=== PATIENT | male | born 1950 | race Caucasian/White ===

== ENCOUNTER 2021-02-11 14:01 | Emergency (ER) | payer MEDICARE ==
[~2021-02-11] VITALS: Ht 182.9 cm; Wt 100.0 kg
[~2021-02-11 14:01] MED LIST: ALLOPURINOL100 MG PO; AMLODIPINE5 MG PO; ASPIRIN EC81 MG PO; C 250 PO; CELECOXIB100 M1 PO; CENTRUM PO; CLONIDINE0.1 MG PO; CLOPIDOGREL75 MG PO; COLCHICINE0.6 M2 PO; DOXAZOSIN4 MG PO; FISH OIL1000 MG PO; FUROSEMIDE20 MG PO; GABAPENTIN300 MG PO; INDOMETHACIN50 MG OR; METFORMIN850 MG PO; METOPROLOL TAR100 MG PO; OMEPRAZOLE20 MG PO; SIMVASTATIN20 MG PO; VALSARTAN320 MG PO; ZESTRIL40 MG OR
[2021-02-11 14:55] LABS: HEMATOCRIT 21.5 % (39.0-50.0); HEMOGLOBIN 7.1 g/dl (14.0-18.0); IMMATURE GRANULOCYTES 2.1 % (0.0-5.0); MEAN CELL VOLUME 90.7 fL CALC (80.0-100.0); NEUT# 14.52 thou/uL (1.82-7.42); RED BLOOD COUNT 2.37 mill/uL (4.70-6.10); RED CELL DISTRI WIDTH 17.8 % (11.5-15.5)
[2021-02-11 15:05] LABS: ALKALINE PHOSPHATASE 58 u/l (38-126); ANION GAP 5 (6-22 (CALC)); BILIRUBIN, TOTAL 0.7 mg/dL (0.0-1.4); BUN 26 mg/dL (8-23); BUN/CREATININE RATIO 28 (12-20 (CALC)); CARBON DIOXIDE 29 mmol/l (22-30); CHLORIDE 101 mmol/l (95-108); CREATININE 0.9 mg/dL (0.7-1.3); GFR > 60 ML/MIN (>=60 (CALC)); GFR FOR AFR.AMER. > 60 ML/MIN (>=60 (CALC)); LIPASE 13 u/l (23-300); SGOT/AST 20 u/l (19-48); SODIUM 132 mmol/l (137-146)
[2021-02-11 15:13] LABS: AMYLASE < 30 u/l (30-110)
[2021-02-11] MEDS ORDERED: MAG-200200 MG PO (17:16)
[2021-02-11 18:24] VITALS: BP 143/63
== END 2021-02-11 18:26 | disposition left against medical advice (07) ==
LOC: ED 14:01
DX: J90 Pleural effusion, not elsewhere classified (principal); I31.3 Pericardial effusion (noninflammatory); E83.42 Hypomagnesemia; E87.6 Hypokalemia; Z91.19 Patient's noncompliance with other medical treatment and regimen; C85.90 Non-Hodgkin lymphoma, unspecified, unspecified site; E11.9 Type 2 diabetes mellitus without complications; Z79.899 Other long term (current) drug therapy; Z79.84 Long term (current) use of oral hypoglycemic drugs
CPT/HCPCS: Q9967

== ENCOUNTER 2021-03-23 13:22 | Inpatient (IN) | payer MEDICARE ==
[2021-03-23] VITALS (12 sets, daily range): BP systolic 90–121; BP diastolic 54–71
[~2021-03-23] VITALS: Ht 182.9 cm; Wt 94.0 kg
[~2021-03-23 13:22] MED LIST changes: -GABAPENTIN300 MG PO; +MAG-200200 MG PO; +NEURONTIN300 MG PO
--- NOTE | 2021-03-23 13:22 | NUR ---
PT TO ROOM VIA EMS ON BIPAP
[2021-03-23 13:50] LABS: GFR > 60 ML/MIN (>=60 (CALC)); GFR FOR AFR.AMER. > 60 ML/MIN (>=60 (CALC))
[2021-03-23 13:54] LABS: HEMATOCRIT 20.4 % (39.0-50.0); IMMATURE GRANULOCYTES 0.7 % (0.0-5.0); MEAN CELL VOLUME 94.4 fL CALC (80.0-100.0); MEAN CORPUSCULAR HGB 30.1 pG CALC (26.0-32.0); MEAN CORPUSCULAR HGB CONC 31.9 g/dL CAL (32.0-36.0); NEUT# 26.06 thou/uL (1.82-7.42); RED BLOOD COUNT 2.16 mill/uL (4.70-6.10); RED CELL DISTRI WIDTH 15.3 % (11.5-15.5)
[2021-03-23 14:02] LABS: HEMOGLOBIN 6.5 g/dl (14.0-18.0)
[2021-03-23 14:10] LABS: INTERNATIONAL NORMALIZED RATIO 1.3 RATIO (0.7-1.3); PROTHROMBIN TIME 13.3 SECONDS (9.0-12.5)
[2021-03-23 14:13] LABS: ALBUMIN 1.8 g/dL (3.2-5.0); ALKALINE PHOSPHATASE 56 u/l (38-126); ANION GAP 8 (6-22 (CALC)); BILIRUBIN, TOTAL 0.6 mg/dL (0.0-1.4); BUN 19 mg/dL (8-23); BUN/CREATININE RATIO 22 (12-20 (CALC)); CARBON DIOXIDE 27 mmol/l (22-30); CHLORIDE 103 mmol/l (95-108); CREATININE 0.9 mg/dL (0.7-1.3); GFR > 60 ML/MIN (>=60 (CALC)); GFR FOR AFR.AMER. > 60 ML/MIN (>=60 (CALC)); POTASSIUM 3.5 mmol/l (3.5-5.1); SGOT/AST 19 u/l (19-48); SODIUM 135 mmol/l (137-146); TOTAL PROTEIN 3.5 g/dL (6.3-8.2)
[2021-03-23 14:29] LABS: URINE BILIRUBIN - DIPSTICK NEGATIVE (NEGATIVE); URINE BLOOD DIPSTICK TRACE-INTACT (NEGATIVE); URINE COLOR YELLOW; URINE GLUCOSE - DIPSTICK NEGATIVE (NEGATIVE); URINE KETONE NEGATIVE (NEGATIVE); URINE LEUK ESTERASE NEGATIVE (NEGATIVE); URINE NITRITE - DIPSTICK NEGATIVE (Negative); URINE PROTEIN - DIPSTICK NEGATIVE (NEG-TRACE); URINE SPECIFIC GRAVITY >=1.030; URINE UROBILINOGEN - DIPSTICK 0.2 E.U./dL (0.2)
--- NOTE | 2021-03-23 14:38 | NUR ---
PT TO RADIOLOGY VIA STRETCHER ON BIPAP. LEVOPHED DRIP, IV ABT, FLUIDS INFUSING. VSS 112/79 74 100% BIPAP. PABON PATENT TO BSDB. L/RAC, PORT IV SITES HEALTHY.
[2021-03-23] MEDS ORDERED: LOSARTAN POTASS50 MG PO (14:40)
[2021-03-23] MEDS ORDERED: CLOPIDOGREL75 MG PO (14:41)
[2021-03-23] MEDS ORDERED: ASPIRIN81 MG PO (14:42)
[2021-03-23] MEDS ORDERED: BUMETANIDE1 MG PO (14:45)
[2021-03-23] MEDS ORDERED: K-TAB20 MEQ PO (14:46)
[2021-03-23] MEDS ORDERED: PROTONIX20 M1 PO (14:47)
[2021-03-23] MEDS ORDERED: TRAMADOL HCL50 MG PO (14:47)
[2021-03-23] MEDS ORDERED: [UNRECOGNIZED DRUG - OTHER] PO (14:48)
--- NOTE | 2021-03-23 15:30 | NUR ---
PATIENT LYING IN BED WITH AT BEDSIDE. ALERT AND ORIENTED.
--- NOTE | 2021-03-23 16:16 | NUR ---
PATIENT LYING IN BED WITH AT BEDSIDE. DENIES NEEDS AT THIS TIME.
--- NOTE | 2021-03-23 17:10 | NUR ---
PATIENT LYING IN BED WITH AT BEDSIDE. LEVOPHED TITRATED BACK FROM 8 TO 10 MCG DUE TO DECREASE IN BLOOD PRESSURE. REASSESSMENT AT THIS TIME SHOWS BP OF 123/66. PATIENT IN NO ACUTE DISTRESS.
--- NOTE | 2021-03-23 17:58 | NUR ---
RECIEVED FROM ER VIA STRETCHER TO ICU 2. AT BEDSIDE. NO C/O PAIN VOICED. ON BIPAP 50%. WOUNDS NOTED TO COCCYX AND MID BACK ALONG VERTABRAL SPINE. GENERALIZED WEAKNESS NOTED. PABON CATH WITH STRAW COLORED FLUID. DRESSING NOTED TO BILAT LOWER EXTRIMITY.
--- NOTE | 2021-03-23 18:00 | NUR ---
TRANSPORTED PATIENT TO ICU WITH RESPIRATORY AND AT BEDSIDE. PATIENT IN NO ACUTE DISTRESS. TO KEEP BELONGINGS. REPORT CALLED TO ICU PRIOR TO TRANSPORT. HAND OFF COMPLETED.
--- NOTE | 2021-03-23 19:00 | NUR ---
REPORT RECEIVED FROM Jay BAY RN, CARE OF PT ASSUMED AT THIS TIME.
--- NOTE | 2021-03-23 20:15 | NUR ---
PT INCONTINENT OF LARGE DARK BROWN LIQUID STOOL. INCONTINCE CARE PROVIDED. WOUNDS TO PERINEUM, STG 3 W/ SLOUGH. WOUND TO CENTER MID BACK CIRCULAR STG 2 X2. LEFT SIDE ABD FOLD ABRASION. B/L GROIN FUNGAL REDNESS/IRRITATION WITH REDNESS AND EDEMA TO PENIS AND SCROTUM. B/L TIRADO ULCERATION. WOUNDS CLEANSED THOROUGHLY AND GENTLY PATTED DRY. PHOTO DOCUMENTATION OBTAINED. SEE CHART.
--- NOTE | 2021-03-23 21:40 | NUR ---
TRANSFUSION OF PRBC INITIATED.
--- NOTE | 2021-03-23 21:55 | NUR ---
15 MINUTES OF BEDSIDE 1:1 MONITORING COMPLETED. PT SHOWS NO DISTRESS OR S/S OF TRANSFUSION REACTION. WILL CON'T TO MONITOR CLOSELY.
--- NOTE | 2021-03-23 23:15 | NUR ---
ORDERS FOR WOUND CARE CONSULT, CASE MANAGMENT CONSULT, NUTRITIONAL CONSULT, AND AIR MATTRESS OBTAINED DUE TO WOUNDS AND TO EVAL ABILITY TO RECEIVE CARE IN CURRENT LIVING SITUATION.
--- NOTE | 2021-03-23 23:27 | NUR ---
TRANSFUSION PRBC COMPLETE WITHOUT COMPLICATION. PT TOLERATED WELL. VSS. POST TRASFUSION IV LASIX ADMINISTERED, SEE E-MAR.
[2021-03-24] VITALS (28 sets, daily range): BP systolic 108–148; BP diastolic 55–84
--- NOTE | 2021-03-24 04:10 | NUR ---
AM LABS COLLECTED VIA IMPLANTED PORT PER [facility] POLICY AND PROCEDURE.
[2021-03-24 06:02] LABS: MEAN CORPUSCULAR HGB 29.2 pG CALC (26.0-32.0); MEAN CORPUSCULAR HGB CONC 33.1 g/dL CAL (32.0-36.0); RED BLOOD COUNT 2.95 mill/uL (4.70-6.10); RED CELL DISTRI WIDTH 17.6 % (11.5-15.5)
[2021-03-24 06:09] LABS: HEMOGLOBIN 8.6 g/dl (14.0-18.0); MEAN CELL VOLUME 88.1 fL CALC (80.0-100.0)
[2021-03-24 06:18] LABS: ALBUMIN 1.6 g/dL (3.2-5.0); ALKALINE PHOSPHATASE 55 u/l (38-126); ANION GAP 10 (6-22 (CALC)); BUN 19 mg/dL (8-23); BUN/CREATININE RATIO 22 (12-20 (CALC)); CARBON DIOXIDE 26 mmol/l (22-30); CHLORIDE 105 mmol/l (95-108); CREATININE 0.8 mg/dL (0.7-1.3); GFR > 60 ML/MIN (>=60 (CALC)); GFR FOR AFR.AMER. > 60 ML/MIN (>=60 (CALC)); POTASSIUM 2.9 mmol/l (3.5-5.1); SGOT/AST 16 u/l (19-48); SODIUM 138 mmol/l (137-146); TOTAL PROTEIN 3.4 g/dL (6.3-8.2)
--- NOTE | 2021-03-24 07:07 | NUR ---
TAKEN OFF BIPAP AND PLACED ON 3l NC. SAT 100%
--- NOTE | 2021-03-24 08:13 | NUR ---
BM X1 LOOSE AND BROWN. BED BATH GIVEN LINENS CHANGED.
--- NOTE | 2021-03-24 08:56 | NUR ---
DR WYATT IN TO SEE PT. MAG RIDER INFUSING AT THIS TIME.
--- NOTE | 2021-03-24 09:02 | NUR ---
LEVOPHED GTT TITRATED TO 8MCG/MIN.
--- NOTE | 2021-03-24 09:56 | NUR ---
CALLED [phone] GIVEN UPDATE ON PT. DR WYATT SPEAKING WITH AT THIS TIME.
--- NOTE | 2021-03-24 10:33 | NUR ---
PT IS RA 95% RESTING IN BED
--- NOTE | 2021-03-24 11:52 | NUR ---
PLACED ON AIR MATTRESS.
--- NOTE | 2021-03-24 12:00 | NUR ---
TITRATED OFF OF LEVOPHED.
[2021-03-24] MEDS ORDERED: CELECOXIB100 M1 PO (12:01)
--- NOTE | 2021-03-24 13:41 | NUR ---
IN TO VISIT.
--- NOTE | 2021-03-24 13:42 | NUR ---
SON IN TO VISIT.
--- NOTE | 2021-03-24 15:37 | NUR ---
BROWN LOOSE BM. KAMLESH CARE DONE. INCREASED SWELLING NOTED TO RT FLANK, LT ARM, PENIS, AND SCROTUM. DR WYATT MADE AWARE.
--- NOTE | 2021-03-24 18:20 | NUR ---
LOOSE BROWN BM. POOR APPEITITE NOTED WITH DINNER.
--- NOTE | 2021-03-24 19:00 | NUR ---
REPORT RECEIVED FROM Jay BAY RN, CARE OF PT ASSUMED AT THIS TIME.
[2021-03-25] VITALS (19 sets, daily range): BP systolic 117–166; BP diastolic 61–71
--- NOTE | 2021-03-25 00:19 | NUR ---
SMALL LIQUID BM, INCONTINENCE CARE PROVIDED. WOUND HONEY TO WOUNDS. BARRIER CREAM TO SURRONDING SKIN.
--- NOTE | 2021-03-25 00:45 | NUR ---
LARGE LIQUID BM, INCONTINENCE CARE PROVIDED. WOUND HONEY TO WOUNDS. BARRIER CREAM TO SURRONDING SKIN.
--- NOTE | 2021-03-25 02:30 | NUR ---
PT INCONTINENT OF LIQUID STOOL. ORDER FOR FMS OBTAINED. STOOL CX AND C-DIFF OBTAINED. PT AGREES TO FMS. INCONTINENCE CARE PROVIDED. FLEXISEAL FMS PLACED. PT TOLERATED PROCEDURE. BARRIER CREAM AND MEDICAL HONEY PLACED OVER WOUNDS.
--- NOTE | 2021-03-25 04:15 | NUR ---
AM LABS COLLECTED VIA IMPLANTED PORT PER [facility] POLICY AND PROCEDURE. AM BED WEIGHT 93.6 KG, SUSPECT BED SCALE WAS NOT ZEROED WHEN PT WAS CHANGED OVER TO AI MATTRESS. WILL ENDORSE TO ONCOMING SHIFT TO ZERO BED SCALE IF PT'S COMES OFF OF BED AT ANY TIME.
[2021-03-25 04:45] LABS: C. DIFFICILE TOXIN A&B NEGATIVE (NEGATIVE)
[2021-03-25 06:09] LABS: HEMATOCRIT 23.9 % (39.0-50.0); HEMOGLOBIN 7.8 g/dl (14.0-18.0); MEAN CELL VOLUME 89.5 fL CALC (80.0-100.0); MEAN CORPUSCULAR HGB 29.2 pG CALC (26.0-32.0); MEAN CORPUSCULAR HGB CONC 32.6 g/dL CAL (32.0-36.0); RED BLOOD COUNT 2.67 mill/uL (4.70-6.10); RED CELL DISTRI WIDTH 17.4 % (11.5-15.5)
[2021-03-25 06:27] LABS: ALBUMIN 1.6 g/dL (3.2-5.0); ALKALINE PHOSPHATASE 57 u/l (38-126); ANION GAP 6 (6-22 (CALC)); BILIRUBIN, TOTAL 0.7 mg/dL (0.0-1.4); BUN 15 mg/dL (8-23); BUN/CREATININE RATIO 19 (12-20 (CALC)); CARBON DIOXIDE 29 mmol/l (22-30); CHLORIDE 106 mmol/l (95-108); CREATININE 0.8 mg/dL (0.7-1.3); GFR > 60 ML/MIN (>=60 (CALC)); GFR FOR AFR.AMER. > 60 ML/MIN (>=60 (CALC)); POTASSIUM 2.9 mmol/l (3.5-5.1); SODIUM 138 mmol/l (137-146); TOTAL PROTEIN 3.3 g/dL (6.3-8.2)
[2021-03-25 06:39] LABS: MAGNESIUM 1.5 mg/dL (1.6-2.3); SGOT/AST 32 u/l (19-48)
--- NOTE | 2021-03-25 06:56 | NUR ---
pt report received from industrial hygienist, pt resting quietly on stretcher, alert/oriented x3 at this time, rectal tube in place and flowing. vital signs stable.
--- NOTE | 2021-03-25 07:45 | NUR ---
BLOOD TRANSFUSION BEGUN THRU LEFT IV SITE, PT SITTING UP IN BED FACETIMING WITH .
--- NOTE | 2021-03-25 10:17 | NUR ---
pt has no complaints at this time, playing on ipad, fluids infusing. vital signs stable
--- NOTE | 2021-03-25 13:09 | NUR ---
complete bed bath and bed change. no diarrhea in rectal tube and pt requesting it out. removed rectal tube per pt request. used therahoney gel on wound area to coccyx and lower back.
--- NOTE | 2021-03-25 13:54 | NUR ---
called to [facility] and asked about when echo for pt would be done, was told that the lady would not be here to do echos until next tuesday. that she was not able to come this week due to personal problems.
--- NOTE | 2021-03-25 15:50 | NUR ---
CALLED FOR UPDATE ON TIME FOR ULTRASOUND CHEST. AND WAS TOLD BY ARSENIO THAT THERE WAS MAINTENCE ON MACHINE, MOST LIKELY WILL BE DONE IN AM BEFORE PARACENTESIS. SON CALLED FROM [place], BOTH PT AND FAMILY UPSET BY 1 VISITOR RULE FOR 30 MIN A DAY. PRINTED OUT POLICY AND GAVE TO PT AND NOTIFIED DIRECTOR MELISA. WILL LET SON COME UP TODAY BUT FROM TOMORROW ON, ONE VISITOR A DAY FOR 30 MIN.
--- NOTE | 2021-03-25 19:00 | NUR ---
REPORT RECEIVED FROM Jay TENORIO RN. CARE OF PT ASSUMED AT THIS TIME.
--- NOTE | 2021-03-25 20:10 | NUR ---
PT INCONTINENT MODERATE LIQUID BM. INCONTINENCE CARE PROVIDED. PARTIAL LINEN CHANGE COMPLETED. WOUND CARE COMPLETED.
--- NOTE | 2021-03-25 20:10 | NUR ---
WOUND CARE: RLE WOUND. CLEANSED WITH NS. PATTED DRY. COLLAGEN DRESSING APPLIED TO WOUND BED. SECURED WITH DUODERM. LLE WOUND. CLEANSED WITH NS. PATTED DRY. ALGINATE DRESSING APPLIED TO WOUND BED. ABD PAD SECURED OVER TOP WITH KERLEX. LEFT ABD FOLD ABRASION CLEANSED WITH NS. PATTED DRY. DUODERM DRESSING PLACED. CENTER MID-BACK WOUNDS LEFT OPEN TO AIR. GLUTEAL PERINEAL WOUNDS WASHED AND DRIED. LAYER OF BARRIER OINTMENT APPLIED AND ABD PAD APPLIED. DRESSING NOT APPLICABLE D/T FREQ STOOL INCONTINENCE.
--- NOTE | 2021-03-25 20:55 | NUR ---
PT INCONTINENT OF LARGE LIQUID BM. INCONTINENCE CARE PROVIDED. LINENS CHANGED. PERNIAL AREA SLATHERED WITH BARRIER OINTMENT. SCROTUM ELEVATED.
[2021-03-26] VITALS (13 sets, daily range): BP systolic 133–169; BP diastolic 62–79
--- NOTE | 2021-03-26 04:10 | NUR ---
AM LABS COLLECTED VIA IMPLANTED PORT PER [facility] POLICY AND PROCEDURE.
[2021-03-26 06:00] LABS: HEMOGLOBIN 9.6 g/dl (14.0-18.0); MEAN CELL VOLUME 90.3 fL CALC (80.0-100.0); MEAN CORPUSCULAR HGB CONC 32.1 g/dL CAL (32.0-36.0); RED BLOOD COUNT 3.31 mill/uL (4.70-6.10); RED CELL DISTRI WIDTH 16.6 % (11.5-15.5)
[2021-03-26 06:05] LABS: HEMATOCRIT 29.9 % (39.0-50.0)
[2021-03-26 06:06] LABS: ALBUMIN 1.7 g/dL (3.2-5.0); ALKALINE PHOSPHATASE 57 u/l (38-126); ANION GAP 3 (6-22 (CALC)); BILIRUBIN, TOTAL 0.9 mg/dL (0.0-1.4); BUN 13 mg/dL (8-23); BUN/CREATININE RATIO 21 (12-20 (CALC)); CARBON DIOXIDE 32 mmol/l (22-30); CHLORIDE 107 mmol/l (95-108); CREATININE 0.7 mg/dL (0.7-1.3); GFR > 60 ML/MIN (>=60 (CALC)); GFR FOR AFR.AMER. > 60 ML/MIN (>=60 (CALC)); MAGNESIUM 1.8 mg/dL (1.6-2.3); POTASSIUM 3.2 mmol/l (3.5-5.1); SGOT/AST 39 u/l (19-48); SODIUM 139 mmol/l (137-146); TOTAL PROTEIN 3.3 g/dL (6.3-8.2)
--- NOTE | 2021-03-26 07:24 | NUR ---
PT RESTING ON STRETCHER, ALERT/ORIENTED X3, ADVISED OF PLAN OF CARE FOR TODAY. STATES THIS AFTERNOON WANTS TO SIT UP IN CHAIR, VITAL SIGNS STABLE. CALL LIGHT WITHIN REACH. WATCHING TV
--- NOTE | 2021-03-26 08:37 | NUR ---
ULTRASOUND HERE , PT WILL HAVE THE RIGHT THORENCETESIS DONE TODAY.
--- NOTE | 2021-03-26 09:00 | NUR ---
PT TAKEN TO ULTRASOUND FOR RIGHT SIDE THORACENTESIS PER STRETCHER
--- NOTE | 2021-03-26 12:45 | NUR ---
FAMILY AT BEDSIDE, TALKING ABOUT [facility] REHAB SINCE MEDICARE WILL NOT PAY FOR HOSPICE IF ON CHEMO
--- NOTE | 2021-03-26 13:39 | NUR ---
CASE MANAGEMENT HERE TO SPEAK TO PT ABOUT REHAB PLACEMENT.
--- NOTE | 2021-03-26 14:09 | NUR ---
PHYSICAL THERAPY EVALUATING PT AT THIS TIME
--- NOTE | 2021-03-26 15:26 | NUR ---
CHANGED PT. AND BED SHEETS, SMALL AMOUNT OF SOFT STOOL APPLIED BUTT PASTE AGAIN TO AREAS OF COCCYX AND LEGS
--- NOTE | 2021-03-26 17:29 | NUR ---
PT RESTING QUIETLY ON STRETCHER, WATCHING TV, NO COMPLAINTS AT THIS TIME, VITAL SIGNS STABLE. ASKING ABOUT DISCHARGE TOMORROW, ADVISED THAT THE DOCTOR WOULD DISCUSS THAT WITH HIM TOMORROW.
--- NOTE | 2021-03-26 18:07 | NUR ---
SMALL AMOUNT OF GREENISH LIGHT BROWN STOOL SOFT , CLEANED PT UP AND CHANGED BED, USED BUTT PASTE TO AREA AND PROPPED UP PENIS AND SCROTUM WITH TOWEL FOR SWELLING TO AREA.
--- NOTE | 2021-03-26 19:10 | NUR ---
pt awake in bed; no apparent distress noted; pt offers no complaints at this time; assessment completed; pt alert and oriented to person and time; states he is in "[place]"; admits to pain to right 2nd toe; requesting " bring in medicine"; denies any other discomfort; no n/v noted per scientific technical writer; resp even and unlabored; lungs clear/ exp post wheezing noted; skin color wnl; ra; hr reg; strong pulses; edema noted to all extremities; sr on monitor; abd soft with bs present; no bm at this time; wolfe to gravity draining clear yellow urine; cath strap intact; #20 saline locked to lfa; right chest port accessed and saline locked; no redness or edema noted at sites; dressing cdi to bilat lower legs; wounds open to air to coccyx/buttocks and mid back; pt refused repositioning; scientific technical writer attempt to change gown d/t being wet; pt refused, saying it will dry; pt agitated with care being provided; pt states "what's all this have to do with my toe"; scientific technical writer has explained assessment needs and plan of care; pt requesting spouse to be here; visiting hours explained; call light within reach; will continue to monitor
--- NOTE | 2021-03-26 20:09 | NUR ---
D DESTINY Gutierrez called per property underwriter in regards to pt complaints of "gout" pain in right foot 2nd toe; pt requesting colcrys; BOXING INSTRUCTOR notified
--- NOTE | 2021-03-26 21:45 | NUR ---
pt yelling out loudly; in to assess pt; pt requesting to get to his chair; reoriented to hospital and surroundings; pt requesting his bring chair from home; pt noncompliant with inspector automatic typewriter at this time; attempted to medicate with scheduled meds and pt refused; pt offered a second time witnessed per nursing sup and cont to refused; call light within reach; will continue to monitor
--- NOTE | 2021-03-26 21:56 | NUR ---
pt incont of stool; cleansed for mod liq bn; barrier cream applied to coccyx/buttocks; attempted to reposition pt and he refused; pt has been explained the importance of repositioning to promote wound healing and again, refused; pt admits to sitting in his recliner most of the day; pt requesting for spouse Meli to come sleep with him; reoriented to hospital; will continue to monitor
--- NOTE | 2021-03-26 22:51 | NUR ---
pt attempting to get out of bed to go walking; reoriented to place and surroundings; pt continues to argue with staff; pt very demanding; pt frequently yelling out for spouse Meli; recliner offered and declined; pt wishes to have "my recliner"; repositioned; bed alarm set for pt safety; will continue to monitor closely
[2021-03-27] VITALS (7 sets, daily range): BP systolic 141–181; BP diastolic 73–87
--- NOTE | 2021-03-27 00:08 | NUR ---
awake; offers no complaints; iv intact and patent; wolfe to gravity; sr on monitor; pt admits to "I pooped again"; pericare to be administered; pt requesting up to recliner; call light within reach; will continue to monitor
--- NOTE | 2021-03-27 00:21 | NUR ---
pt awake in bed; cleansed for liq/loose dk green stool; buttock cream applied; staff x3 attempting to place pt in chair; pt unable to assist with bearing any weight; pt then declined after attempting to sit on side of bed; repositioned supine; refusing to allow offload of buttocks; pt allowed staff to change gown; wolfe to gravity; iv intact; will continue to monitor
--- NOTE | 2021-03-27 02:13 | NUR ---
resting briefly; easily aroused; offers no complaints; sb on monitor; wolfe to gravity; will continue to monitor
--- NOTE | 2021-03-27 04:06 | NUR ---
awake in bed; offers no complaints; sb on monitor; wolfe to gravity; will continue to monitor
[2021-03-27 05:31] LABS: HEMATOCRIT 28.8 % (39.0-50.0); HEMOGLOBIN 9.2 g/dl (14.0-18.0); MEAN CELL VOLUME 91.4 fL CALC (80.0-100.0); MEAN CORPUSCULAR HGB 29.2 pG CALC (26.0-32.0); MEAN CORPUSCULAR HGB CONC 31.9 g/dL CAL (32.0-36.0); RED BLOOD COUNT 3.15 mill/uL (4.70-6.10)
[2021-03-27 05:42] LABS: ANION GAP 3 (6-22 (CALC)); BUN 11 mg/dL (8-23); BUN/CREATININE RATIO 19 (12-20 (CALC)); CARBON DIOXIDE 33 mmol/l (22-30); CHLORIDE 105 mmol/l (95-108); CREATININE 0.6 mg/dL (0.7-1.3); GFR > 60 ML/MIN (>=60 (CALC)); GFR FOR AFR.AMER. > 60 ML/MIN (>=60 (CALC)); MAGNESIUM 1.5 mg/dL (1.6-2.3); SODIUM 139 mmol/l (137-146)
--- NOTE | 2021-03-27 06:07 | NUR ---
awake in bed; sr on monitor; wolfe to gravity; port accessed; call light within reach
--- NOTE | 2021-03-27 07:00 | NUR ---
REPORT RECEIVED FROM ZEE LILLY. PT AWAKE ALERT AND INNAPROPRIATE. YELLING FOR "REJI" AND "HELP" AFTER EARLY CHILDHOOD ASSOCIATE ASSESSES NEEDS. PT THROWING WATER, CUPS AND ITEMS ON BS TABLE. PT UNAWARE OF PLACE OR TIME. DOES NOT RE-ORIENTATE AFTER MULTIPLE ATTEMPTS. VSS, PT REFUSING TO BE CARED FOR, REFUSING TO BE CLEANED UP. BED ALARM ON AND ACTIVATED. WILL CONTINUE TO MONITOR CLOSELY.
--- NOTE | 2021-03-27 10:00 | NUR ---
PT DEMANDING TO GO HOME AT THIS TIME. MD AWARE AND AT BS. PT ATTEMPTING TO GET OOB, ASSISTED WITH TWO STAFF MEMBERS AT THIS TIME BACK IN THE BED, CHANGED OF BOWEL INCONTINENCE. RE-ORIENTATED. WAITING FOR PT AND WOUND CARE TO EVALUATE AT THIS TIME.
[2021-03-27] MEDS ORDERED: FLORASTOR250 M1 PO (10:06)
[2021-03-27] MEDS ORDERED: AMOX/K CLAV875 M1 PO (10:06)
--- NOTE | 2021-03-27 10:57 | NUR ---
wolfe removed at this time. pt is extremely anxious to be discharged. md notified of pt's worsening wounds. in at bs to see pt and skin condition. will await further orders to poc.
[2021-03-27] MEDS ORDERED: CIPROFLOXACN500 MG PO (12:23)
[2021-03-27] MEDS ORDERED: METRONIDAZOLE500 MG PO (12:24)
--- NOTE | 2021-03-27 13:49 | NUR ---
PT DISCHARGED AT THIS TIME WITH TWO MEMBERS OF FAMILY AND TWO MEMBERS OF PHYSICAL THERAPY. PT REFUSING TO GO TO REHAB AT THIS TIME FOR FURTHER CARE. WOUNDS ON COCCYX CHANGED AND ON BACK. PT IN FAIR CONDITION AT THIS TIME. GIVEN DISCHARGE INSTRUCTIONS. STATES UNDERSTANDING OF POC. BELONGINGS SENT HOME WITH FAMILY, PORT DE-ACCESSED PER PROTOCOL
--- NOTE | 2021-03-27 14:50 | NUR ---
S: Patient wanted to be discharged home. O: Patient performed: Bed mobility Mod A x 2 PT assisted RN in positioning patient to address wounds. Supine to sit Max A x 2 Sit to stand Dependent x 2 Patient was incapable of assisting during sit to stand. Bed to wheelchair Dependent x 2 Stand pivot transfer was used Wheelchair to car Dependent x 2 Patient's family required PT assistance to transfer to car. A: Patient was advised to stay in hospital to be discharged to an extended care facility but he declined and wanted to go home AMA. Patient is fully dependent with all transfers and all weight bearing ADLs. P: Patient requires further interventions focused on strengthening, bed mobility, transfers, and all other weight bearing ADLs. Patient's Am Pac score was 6 which would be a recommendation for an extended care facility. I agree with this recommendation as it is unsafe for patient to be home without continous care and supervision.
== END 2021-03-27 13:30 | disposition home health service (06) | DRG 193 ==
LOC: ED 13:22 → ED-I 16:10 → ED 16:26 → ICU 16:27
PROVIDERS: Family Medicine; Nurse Practitioner; ADMIT Internal Medicine; ATTEND Internal Medicine
PROC: 30233N1 Transfusion of Nonautologous Red Blood Cells into Peripheral Vein, Percutaneous Approach (ICD-10-PCS; principal; 2021-03-23)
PROC: 30233N1 Transfusion of Nonautologous Red Blood Cells into Peripheral Vein, Percutaneous Approach (ICD-10-PCS; 2021-03-23)
PROC: 5A09357 Assistance with Respiratory Ventilation, Less than 24 Consecutive Hours, Continuous Positive Airway Pressure (ICD-10-PCS; 2021-03-23)
PROC: 0T9B70Z Drainage of Bladder with Drainage Device, Via Natural or Artificial Opening (ICD-10-PCS; 2021-03-23)
PROC: 30233N1 Transfusion of Nonautologous Red Blood Cells into Peripheral Vein, Percutaneous Approach (ICD-10-PCS; 2021-03-25)
PROC: 0W993ZZ Drainage of Right Pleural Cavity, Percutaneous Approach (ICD-10-PCS; 2021-03-26)
DX: J18.9 Pneumonia, unspecified organism (principal); J96.01 Acute respiratory failure with hypoxia; E43 Unspecified severe protein-calorie malnutrition; L89.303 Pressure ulcer of unspecified buttock, stage 3; C85.90 Non-Hodgkin lymphoma, unspecified, unspecified site; J91.8 Pleural effusion in other conditions classified elsewhere; I11.0 Hypertensive heart disease with heart failure; I50.9 Heart failure, unspecified; E11.40 Type 2 diabetes mellitus with diabetic neuropathy, unspecified; I95.9 Hypotension, unspecified; D64.81 Anemia due to antineoplastic chemotherapy; N40.0 Benign prostatic hyperplasia without lower urinary tract symptoms; E87.6 Hypokalemia; E83.42 Hypomagnesemia; E78.5 Hyperlipidemia, unspecified; M10.9 Gout, unspecified; R19.7 Diarrhea, unspecified; T45.1X5A Adverse effect of antineoplastic and immunosuppressive drugs, initial encounter; Z86.73 Personal history of transient ischemic attack (TIA), and cerebral infarction without residual deficits; Z79.899 Other long term (current) drug therapy; Z68.25 Body mass index [BMI] 25.0-25.9, adult; Z79.02 Long term (current) use of antithrombotics/antiplatelets; Z20.822 Contact with and (suspected) exposure to COVID-19
CPT/HCPCS: J3475; P9016; P9047; Q9967

== ENCOUNTER 2021-03-28 16:03 | Emergency (ER) | payer MEDICARE ==
[~2021-03-28] VITALS: Ht 182.9 cm; Wt 75.0 kg
[~2021-03-28 16:03] MED LIST changes: +AMOX/K CLAV875 M1 PO; +ASPIRIN81 MG PO; +BUMETANIDE1 MG PO; +CIPROFLOXACN500 MG PO; +FLORASTOR250 M1 PO; +K-TAB20 MEQ PO; +LOSARTAN POTASS50 MG PO; +METRONIDAZOLE500 MG PO; +PROTONIX20 M1 PO; +TRAMADOL HCL50 MG PO; +[UNRECOGNIZED DRUG - OTHER] PO
[2021-03-28 16:48] LABS: HEMATOCRIT 33.2 % (39.0-50.0); HEMOGLOBIN 10.3 g/dl (14.0-18.0); IMMATURE GRANULOCYTES 2.6 % (0.0-5.0); MEAN CELL VOLUME 91.5 fL CALC (80.0-100.0); MEAN CORPUSCULAR HGB 28.4 pG CALC (26.0-32.0); NEUT# 1.87 thou/uL (1.82-7.42); RED BLOOD COUNT 3.63 mill/uL (4.70-6.10); RED CELL DISTRI WIDTH 16.1 % (11.5-15.5)
[2021-03-28 17:08] LABS: ALBUMIN 2.2 g/dL (3.2-5.0); ALKALINE PHOSPHATASE 56 u/l (38-126); ANION GAP 7 (6-22 (CALC)); BILIRUBIN, TOTAL 0.8 mg/dL (0.0-1.4); BUN 12 mg/dL (8-23); BUN/CREATININE RATIO 20 (12-20 (CALC)); CARBON DIOXIDE 29 mmol/l (22-30); CHLORIDE 104 mmol/l (95-108); CREATININE 0.6 mg/dL (0.7-1.3); GFR > 60 ML/MIN (>=60 (CALC)); GFR FOR AFR.AMER. > 60 ML/MIN (>=60 (CALC)); POTASSIUM 3.1 mmol/l (3.5-5.1); SGOT/AST 28 u/l (19-48); SODIUM 137 mmol/l (137-146); TOTAL PROTEIN 4.4 g/dL (6.3-8.2)
[2021-03-28 20:15] VITALS: BP 118/80
== END 2021-03-28 20:15 | disposition short-term general hospital (02) ==
LOC: ED 16:03
PROVIDERS: Family Medicine
DX: I21.4 Non-ST elevation (NSTEMI) myocardial infarction (principal); J18.9 Pneumonia, unspecified organism; D64.9 Anemia, unspecified; C85.90 Non-Hodgkin lymphoma, unspecified, unspecified site; I10 Essential (primary) hypertension; E11.9 Type 2 diabetes mellitus without complications; M10.9 Gout, unspecified; F17.200 Nicotine dependence, unspecified, uncomplicated; Z79.899 Other long term (current) drug therapy; Z20.822 Contact with and (suspected) exposure to COVID-19
CPT/HCPCS: J1650